=== PATIENT | female | born 1980 | race Caucasian/White ===

== ENCOUNTER 2019-11-03 11:35 | Inpatient (IN) | payer OTHER ==
[2019-11-03] MEDS ORDERED: CITRIC ACID/SODIUM CITRATE 30 ML UNIT-DOSE CUP PO ONE (13:28)
[2019-11-03] MEDS ORDERED: ELECTROLYTE-148 SOLN 500 ML IV ONE (13:28)
[2019-11-03] MEDS ORDERED: ELECTROLYTE-148 SOLN 1,000 ML IV SCH (13:30)
[2019-11-03 13:31] VITALS: BMI 36.3
--- NOTE | 2019-11-03 13:32 | HP ---
Past Medical History - Primary Care Physician PCP:: José Polanco - Admission Chief Complaint: repeat lt c s History of Present Illness: same , btl History Source: Patient Limitations to Obtaining History: No Limitations - Past Medical History CLAIM AGENT: No: Alzheimer's, CVA, Dementia, Migraine, Multiple Sclerosis, Peripheral Neuropathy, Parkinson's, Seizure, Syncope, TIA, Vertigo, Other Cardiovascular: No: AFIB, Aneurysm, Aortic Insufficiency, Aortic Stenosis, CAD, CHF, Deep Vein Thrombosis, HTN, Hyperlipdemia, AR, Mitral Insufficiency, Mitral Stenosis, Murmur, Pulmonary Hypertension, Other Pulmonary: No: Asthma, Bronchitis, Cancer, COPD, O2 Dependent, Pneumonia, Previously Intubated, Pulmonary Embolus, Pulmonary Fibrosis, Sleep Apnea, Other Gastrointestinal: No: Ascites, Cancer, Constipation, Crohn's Disease, Diverticulitis, Diverticulosis, Esophageal Varices, Gastritis, GERD, GI Bleed, Hemorrhoids, Hiatal Hernia, Inflamatory Bowel Disease, Irritable Bowel Disease, Pancreatitis, Peptic Ulcer Disease, Ulcerative Colitis, Other Hepatobiliary: No: Cirrhosis, Cholelithiasis, Cholecystitis, Choledocholithiasis, Hepatitis A, Hepatitis B, Hepatitis C, Other Renal/: No: Renal Failure, Renal Inusuff, BPH, Cancer, Hematuria, Hemodialysi s, Neurogenic Bladder, Renal Calculi, UTI, Other Reproductive: No: Ectopic , Endometriosis, Fibroids, PID, Polycystic Ovary Syndrome, Postmenopausal, Other Heme/Onc: No: Anemia, B12 Deficiency, Bleeding Disorder, Cancer, Current Chemotherapy, Current Radiation Therapy, Hemochromatosis, Hypercoaguable State, Myeloproliferative Synd, Sickle Cell Disease, Sickle Cell Trait, Thrombocytopenia, Other Infectious Disease: No: AIDS, C-Diff, Herpes Zoster, HIV, MRSA, STD's, Tuberculosis, VREF, Other Psych: No: Addictions, Anxiety, Bipolar, Depression, Panic, Psychosis, Schizophrenia, Other Musculoskeletal: No: Bursitis, Chronic low back pain, Hemiparesis, Hemiplegia, Osteoarthritis, Paraplegia, Other - Past Surgical History Past Surgical History: Yes: Hx Myomectomy: No Hx Transabdominal Cerclage: No - Advance Directives Advance Directives: Yes: Living Will - Smoking History Smoking history: Never smoked Have you smoked in the past 12 months: No - Alcohol/Substance Use Hx Alcohol Use: No History of Substance Use: reports: None - Social History Usual Living Arrangement: Yes: With Significant Other Do you think of yourself as: Straight/Heterosexual ADL: Independent History of Recent Travel: No Family Medical History Family History: Denies Review of Systems - Review of Systems Constitutional: reports: No Symptoms Eyes: reports: No Symptoms HENT: reports: No Symptoms Neck: reports: No Symptoms Cardiovascular: reports: No Symptoms Respiratory: reports: No Symptoms Gastrointestinal: reports: No Symptoms Genitourinary: reports: No Symptoms Breasts: reports: No Symptoms Reported Musculoskeletal: reports: No Symptoms Integumentary: reports: No Symptoms Neurological: reports: No Symptoms Endocrine: reports: No Symptoms Hematology/Lymphatic: reports: No Symptoms Psychiatric: reports: No Symptoms Physical Exam - Maternity Constitutional: Yes: Well Nourished, No Distress, Calm Eyes: Yes: WNL, Conjunctiva Clear, EOM Intact HENT: Yes: WNL, Atraumatic, Normocephalic Neck: Yes: WNL, Supple, Trachea Midline Cardiovascular: Yes: WNL, Regular Rate and Rhythm Lungs: Clear to auscultation Breast(s): Yes: WNL - Abdominal Exam/OB Fundal Height: 38 Number of Fetuses: Single Presentation: Vertex Contractions: Yes Regularity: Irregular Intensity: Mild Monitor Mode: External Heart Rate (range): 150 Heart Rate Location: [facility] Category: I Accelerations: Uniform Decelerations: None - Vaginal Exam/OB Vaginal Bleeding: No Speculum Exam: No Presentation: Vertex/Position Station: -2 - Physical Exam Musculoskeletal: Yes: WNL Extremities: Yes: WNL Edema: Yes Integumentary: Yes: WNL Deep Tendon Reflex Grade: Normal +2 ...Motor Strength: WNL Psychiatric: Yes: WNL, Alert, Oriented Hemorrhage Risk Assessment - Risk Factors Medium Risk Factors: Yes: None High Risk Factors: Yes: None Risk Score: 1 Risk Level: Medium Risk Assessment/Plan for repeat lt c s,btl
[2019-11-03] MEDS ORDERED: ONDANSETRON 4 MG/2 ML VIAL IVPUSH PRN (17:33)
[2019-11-03] MEDS ORDERED: morphine SULFATE/PF 0.5 MG/ML (2cc Syringe - QUVA) ONE (17:45)
[2019-11-03] MEDS ORDERED: ceFAZolin SODIUM 1 GM VIAL ONE (17:55)
[2019-11-03] MEDS ORDERED: OXYTOCIN 10 UNITS/ML VIAL ONE (18:06)
[2019-11-03] MEDS ORDERED: KETOROLAC TROMETHAMINE 30 MG/1 ML VIAL ONE (18:13)
[2019-11-03] MEDS ORDERED: OXYTOCIN 20 UNITS in 0.9% NS 20 UNIT/1,000 ML INFUS.BAG IV ONE ×2 (18:26→21:20)
[2019-11-03] MEDS ORDERED: METHYLERGONOVINE MALEATE 0.2 MG/1 ML AMP IM PRN (19:30)
[2019-11-03] MEDS ORDERED: SENNOSIDES/DOCUSATE COMBO (SENNA PLUS) TABLET (UD) PO PRN (19:30)
[2019-11-03] MEDS ORDERED: OXYTOCIN 20 UNITS in 0.9% NS 20 UNIT/1,000 ML INFUS.BAG IV SCH (19:30)
--- NOTE | 2019-11-03 19:30 | OP ---
Operative Note - Note: Operative Date: 11/03/19 Pre-Operative Diagnosis: repeat lt c s ,btl Operation: repeat lt c s x 3 , btl Post-Operative Diagnosis: Same as Pre-op Surgeon: José Polanco Design Director: Jaswinder Davis Anesthesiologist/CASHIER GAMBLING: Geoffrey Gonzalez Anesthesia: Spinal Estimated Blood Loss (mls): 500 (no complications ) Operative Report Dictated: Yes
[2019-11-04] MEDS: IBUPROFEN 800 MG/8 ML IJ IVPB PRN ×2 (05:52→13:27)
[2019-11-04 08:57] LABS: BASO % 0.6 % (0-2.0); EOS % 0.5 % (0-4.5); HEMATOCRIT 32.5 % (32.4-45.2); HEMOGLOBIN 10.9 GM/dL (10.7-15.3); LYMPH % 13.8 % (8-40); MCH 33.1 pg (25.7-33.7); MCHC 33.6 g/dl (32.0-36.0); MEAN CELL VOLUME 98.4 fl (80-96); MEAN PLT VOLUME 10.1 fl (7.5-11.1); MONO % 4.5 % (3.8-10.2); NEUT % 80.6 % (42.8-82.8); PLATELET COUNT 159 K/MM3 (134-434); RDW 13.3 % (11.6-15.6); WHITE BLOOD COUNT 10.6 K/mm3 (4.0-10.0)
[2019-11-04] MEDS: PRENATAL VITAMINS W/ FOLIC ACID TABLET (FP) PO SCH (10:09)
--- NOTE | 2019-11-04 10:53 | PN ---
Progress Note (short form) - Note Progress Note: Anesthesiologist post op note POD#1 S/P under Spinal with duramorph. VSS. Ambulating. Tolerating po. Pain under control, scale 2/10. No apparent post anesthesia complications.
[2019-11-04] MEDS: oxyCODONE HCL 5 MG TABLET PO PRN (18:43)
[2019-11-04] MEDS: ACETAMINOPHEN 325 MG TABLET (FP) PO PRN (18:45)
[2019-11-04] MEDS ORDERED: BISACODYL 10 MG SUPP.RECT RC PRN (19:31)
--- NOTE | 2019-11-04 20:32 | PN ---
Post Progress Note Post Day: 1 Type of Delivery: Repeat C/S Vital Signs: Vital Signs Temperature 98.5 F 11/04/19 18:02 Pulse Rate 59 L 11/04/19 18:02 Respiratory Rate 20 11/04/19 18:02 Blood Pressure 96/60 11/04/19 18:02 O2 Sat by Pulse Oximetry (%) 98 11/04/19 18:02 Breast Exam: Yes: Soft Uterus: Yes: Fundus Firm Incision: Yes: Dressing dry and intact, Sutures intact Abdomen/GI: Yes: Abdomen soft, Tolerating PO Lochia: Yes: Serosa Lochia, amount: Small Extremities: Yes: Calves non-tender Perineum: Yes: Intact Activity: Ambulating - Labs Labs: CBC WBC 10.6 K/mm3 (4.0-10.0) H 11/04/19 07:57 RBC 3.30 M/mm3 (3.60-5.2) L 11/04/19 07:57 Hgb 10.9 GM/dL (10.7-15.3) 11/04/19 07:57 Hct 32.5 % (32.4-45.2) 11/04/19 07:57 MCV 98.4 fl (80-96) H 11/04/19 07:57 MCH 33.1 pg (25.7-33.7) 11/04/19 07:57 MCHC 33.6 g/dl (32.0-36.0) 11/04/19 07:57 RDW 13.3 % (11.6-15.6) 11/04/19 07:57 Plt Count 159 K/MM3 (134-434) 11/04/19 07:57 MPV 10.1 fl (7.5-11.1) 11/04/19 07:57 Absolute Neuts (auto) 8.6 K/mm3 (1.5-8.0) H 11/04/19 07:57 Neutrophils % 80.6 % (42.8-82.8) 11/04/19 07:57 Lymphocytes % 13.8 % (8-40) 11/04/19 07:57 Monocytes % 4.5 % (3.8-10.2) 11/04/19 07:57 Eosinophils % 0.5 % (0-4.5) 11/04/19 07:57 Basophils % 0.6 % (0-2.0) 11/04/19 07:57 Nucleated RBC % 0 % (0-0) 11/04/19 07:57 Assessment/Plan ambulating well, prefer to stay till gabino
--- NOTE | 2019-11-04 21:55 | OP ---
DATE OF OPERATION: 11/03/2019 PREOPERATIVE DIAGNOSIS: Repeat low transverse section x3, bilateral tubal ligation. POSTOPERATIVE DIAGNOSIS: Repeat low transverse section x3, bilateral tubal ligation. PROCEDURE: Repeat low transverse section x3 and bilateral tubal ligation. SURGEON: Giovana Fan MD CLAY ARTIST: MICHELLE Quiñones ANESTHESIOLOGIST: SHY Leal ANESTHESIA: Spinal. INDICATIONS: This is a 39-year-old female patient with previous 2 low transverse sections. All the risks and benefits, alternatives explained to the patient including future , ectopic, nonreversible. Patient insists on a bilateral tubal ligation and declined any method of family planning. Patient was taken to the OR and was placed on the operating table in supine position. After spinal anesthesia was obtained, the patient's abdomen and pelvis were prepped and draped in the usual sterile manner. Pfannenstiel incision was made. Incision was made through skin and subcutaneous tissue, and the fascia was nicked in the midline. The fascia extended bilaterally. Intraperitoneal cavity was entered. Bladder flap was created. Low-transverse segment was entered. Baby delivered from MYLENE position. Baby was handed over to the telemarketing representative after umbilical cord doubly clamped and cut. Placenta was removed. Uterus closed in single layer, first layer interlocking Vicryl sutures. Good hemostasis. Both gutters cleaned. Both ovaries, fallopian tubes, and uterus were within normal limits. No complications. Blood loss was about 500 mL. Both fallopian tubes were within normal limits. So, grasped with [place] at the isthmic end and double transected and suture ligated. Both ends of the tube were coagulated with the Bovie, so good hemostasis. No complications. Tolerated the procedure well. So, peritoneum was closed. Fascia was closed. Skin was closed. She was transferred to recovery room in stable condition. GIOVANA FAN MD [id number]
[2019-11-05] MEDS: SIMETHICONE 80 MG TAB.CHEW (FP) PO PRN ×4 (00:34→16:39)
[2019-11-05] MEDS: IBUPROFEN 600 MG TABLET (FP) PO PRN ×3 (00:35→22:00)
[2019-11-05] MEDS: oxyCODONE HCL 5 MG TABLET PO PRN ×4 (00:36→16:39)
--- NOTE | 2019-11-05 08:16 | PN ---
Post Progress Note Post Day: 2 Type of Delivery: Repeat C/S Vital Signs: Vital Signs Temperature 97.7 F 11/04/19 20:46 Pulse Rate 65 11/04/19 20:46 Respiratory Rate 20 11/04/19 20:46 Blood Pressure 103/64 11/04/19 20:46 O2 Sat by Pulse Oximetry (%) 98 11/04/19 18:02 Breast Exam: Yes: Soft Uterus: Yes: Fundus Firm Incision: Yes: Dressing dry and intact, Sutures intact Abdomen/GI: Yes: Abdomen soft, Passing flatus, Tolerating PO Lochia: Yes: Serosa Lochia, amount: Small Extremities: Yes: Calves non-tender Perineum: Yes: Intact Activity: Ambulating (doing well, dc pt home tomorrow ) - Labs Labs: CBC WBC 10.6 K/mm3 (4.0-10.0) H 11/04/19 07:57 RBC 3.30 M/mm3 (3.60-5.2) L 11/04/19 07:57 Hgb 10.9 GM/dL (10.7-15.3) 11/04/19 07:57 Hct 32.5 % (32.4-45.2) 11/04/19 07:57 MCV 98.4 fl (80-96) H 11/04/19 07:57 MCH 33.1 pg (25.7-33.7) 11/04/19 07:57 MCHC 33.6 g/dl (32.0-36.0) 11/04/19 07:57 RDW 13.3 % (11.6-15.6) 11/04/19 07:57 Plt Count 159 K/MM3 (134-434) 11/04/19 07:57 MPV 10.1 fl (7.5-11.1) 11/04/19 07:57 Absolute Neuts (auto) 8.6 K/mm3 (1.5-8.0) H 11/04/19 07:57 Neutrophils % 80.6 % (42.8-82.8) 11/04/19 07:57 Lymphocytes % 13.8 % (8-40) 11/04/19 07:57 Monocytes % 4.5 % (3.8-10.2) 11/04/19 07:57 Eosinophils % 0.5 % (0-4.5) 11/04/19 07:57 Basophils % 0.6 % (0-2.0) 11/04/19 07:57 Nucleated RBC % 0 % (0-0) 11/04/19 07:57
--- NOTE | 2019-11-05 08:20 | DS ---
Physical Exam-KILN REPAIRER Vital Signs: Vital Signs Temperature 97.7 F 11/04/19 20:46 Pulse Rate 65 11/04/19 20:46 Respiratory Rate 20 11/04/19 20:46 Blood Pressure 103/64 11/04/19 20:46 O2 Sat by Pulse Oximetry (%) 98 11/04/19 18:02 Constitutional: Yes: Well Nourished, No Distress, Calm Eyes: Yes: WNL, Conjunctiva Clear, EOM Intact HENT: Yes: WNL, Atraumatic, Normocephalic Neck: Yes: WNL, Supple, Trachea Midline Cardiovascular: Yes: WNL, Regular Rate and Rhythm Respiratory: Yes: WNL, Regular, CTA Bilaterally Gastrointestinal: Yes: WNL, Normal Bowel Sounds, Soft ...Rectal Exam: Yes: WNL Renal/: Yes: WNL Pelvis: Yes: WNL External Genitalia: Yes: Normal Internal Exam Deferred: No Vaginal Exam: Yes: Normal Cervix: Yes: Normal Uterus: Yes: Normal Adnexa: Normal: Bilateral ....Post : Yes: Uterus firm, Uterus non-tender Breast(s): Yes: WNL Musculoskeletal: Yes: WNL Extremities: Yes: WNL Edema: Yes Integumentary: Yes: WNL Wound/Incision: Yes: Clean/Dry, Well Approximated Neurological: Yes: WNL, Alert, Oriented ...Motor Strength: WNL Psychiatric: Yes: WNL, Alert, Oriented Labs: CBC, BMP 11/04/19 07:57 Delivery - Delivery Section: Repeat Type of Anesthesia: Spinal Episiotomy/Laceration: None EBL (cc): 500 Delivery, Single - Stages of Labor Date of Delivery: 11/03/19 Time of Delivery: 18:13 Time Placenta Delivered: 18:14 Placenta: Yes: Spontaneous - Condition of Infant Non Emergency Services Ambulance Driver/Surgical Supervisor Present: Yes Name: Aracelis Wei Gender: Female Weight: 2.75 kg Position: Left, OA Total Hours ROM (Hrs/Mins): 0hrs 2min - 1 Minute Total Score: 9 5 Minutes Total Score: 9 - [place] Feeding Plan Initial Plan: Elected not to breastfeed exclusively throughout hospitalization Discharge Summary Problems reviewed: Yes Reason For Visit: REPEAT Procedures: Principal: repeat csx3, btl Other Procedures: btl Hospital Course: uneventful Health Concerns: none Condition: Good - Instructions Diet, Activity, Other Instructions: Physical activity Resume your normal everyday activity as tolerated no heavy lifting or exercise until seen by your surgeon. You may walk unlimited mariya of and climb stairs. You may resume driving the car when you feel safe and comfortable behind the wheel. No sexual activity as instructed. Wound care If you have a bandage, leave it on, and keep dry for 48-72 hours. After that time discard the outer bandage. If they are tapes on the skin under the out of bandage leave them in place. They will peel off in the next 7 to 10 days. Do Not Peel them off. You may shower the day after surgery. If there are tapes present on the skin, you may shower over them. Diet There are no dietary restrictions. Eat healthy, high-fiber foods. Drink 6 to 8 glasses of liquid each day. This will assist in keeping your bowels are regular. Pain management You may take Tylenol or acetaminophen or Ibuprofen (for example, Motrin, Advil etc.) from my pain prescription medication is ordered should be taken as prescribed for moderate to severe pain. Call MD for any of the following:call dr mclaughlin for 2 week appointment Severe pain not relieved by medication Fever of 101 or higher Excessive bleeding or drainage on dressing Inability to urinate Disposition: HOME - Home Medications Comprehensive Discharge Medication List: Ambulatory Orders Vitamins (Sjr) - 1 tab PO DAILY 11/03/19 Prescription Drug Monitoring Program (I-STOP) results: I-STOP reviewed and no issues identified
[2019-11-05] MEDS: PRENATAL VITAMINS W/ FOLIC ACID TABLET (FP) PO SCH (09:54)
[2019-11-05] MEDS: ACETAMINOPHEN 325 MG TABLET (FP) PO PRN ×3 (12:13→22:03)
[2019-11-06] MEDS: IBUPROFEN 600 MG TABLET (FP) PO PRN ×2 (06:29→11:38)
[2019-11-06] MEDS: oxyCODONE HCL 5 MG TABLET PO PRN (06:29)
[2019-11-06] MEDS: PRENATAL VITAMINS W/ FOLIC ACID TABLET (FP) PO SCH (11:35)
[2019-11-06] MEDS: ACETAMINOPHEN 325 MG TABLET (FP) PO PRN (11:38)
[2019-11-06 12:22] VITALS: BP 137/75; PULSE 79; TEMP 98
--- NOTE | 2019-11-09 14:21 | PATH ---
Surgical Pathology Report Patient Name: YOLANDE NEWTON [facility]. Rec. #: [id number] /Age/Gender: 1980 (Age: 39) / F Account: [id number] Location: [facility] OBS/CONTRACTS MANAGER Taken: 11/03/2019 Received: 11/06/2019 Reported: 11/09/2019 Physicians: José Polanco MD Specimen(s) Received A: PLACENTA B: PORTION OF RIGHT TUBE C: PORTION OF LEFT TUBE Clinical History , repeat 39.3 week Final Diagnosis A. PLACENTA: THIRD TRIMESTER PLACENTA WITH INCREASED PERIVILLOUS FIBRIN DEPOSITION. TRIVASCULAR CORD. MEMBRANES WITH NO DIAGNOSTIC ABNORMALITIES. B. PORTION OF RIGHT FALLOPIAN TUBE, RESECTION: COMPLETE CROSS SECTION OF THE FALLOPIAN TUBE LUMEN IDENTIFIED. C. PORTION OF LEFT FALLOPIAN TUBE, RESECTION: COMPLETE CROSS SECTION OF THE FALLOPIAN TUBE LUMEN IDENTIFIED. Electronically Signed Nurys Adan M.D. Gross Description A. The specimen is received fresh labeled "placenta" and is a 418 gram, 15.5 x 14 x 2.5 cm. placenta with attached membranes and umbilical cord. The attached membranes are glistening and translucent and insert marginally. The umbilical cord measures 36 cm. in length and averages 1.3 cm. in diameter. The cord inserts eccentrically 3 cm from the placental margin. No true knots or strictures are identified. Cut surface of the umbilical cord reveals 3 vessels. The surface is kasper-blue with minimal fibrin deposition and appropriate caliber vessels. The maternal surface is red-brown with focal defects. Sectioning reveals red-brown, spongy parenchyma. No lesions are identified. Byproducts Operator sections are submitted in three cassettes as follows: 1- membrane rolls and umbilical cord; 2-3- full thickness sections of placenta. B. Received fresh labelled "portion of right fallopian tube" is a 2.0 cm long by 0.5 cm in diameter portion of tissue consistent with a portion of fallopian tube. The fimbriated end is not identified. No focal lesions are identified. Sectioned and petroleum products sales representative section submitted in one cassette. C. Received fresh labelled "portion of left fallopian tube" is a 1.5 cm long by 0.5 cm in diameter portion of tissue consistent with a portion of fallopian tube. The fimbriated end is not identified. No focal lesions are identified. Sectioned and petroleum products sales representative section submitted in one cassette. __ KWS/11/07/2019 [email or web address]/11/07/2019
== END 2019-11-06 13:30 | disposition home or self-care (01) | DRG 540 ==
LOC: JLDR 11:35 → J3W 23:49
PROVIDERS: ADMIT Obstetrics & Gynecology; ATTEND Obstetrics & Gynecology
PROC: 10D00Z1 Extraction of Products of Conception, Low, Open Approach (ICD-10-PCS; principal; 2019-11-03)
PROC: 0UL70ZZ Occlusion of Bilateral Fallopian Tubes, Open Approach (ICD-10-PCS; 2019-11-03)
DX: O82 Encounter for cesarean delivery without indication (principal); O34.211 Maternal care for low transverse scar from previous cesarean delivery; Z30.2 Encounter for sterilization; Z86.19 Personal history of other infectious and parasitic diseases; Z87.440 Personal history of urinary (tract) infections; Z3A.39 39 weeks gestation of pregnancy; Z37.0 Single live birth
CPT/HCPCS: 36415; 85025; 88302-TC; 88307-TC